=== PATIENT | male | born 1970 | race Caucasian/White ===

== ENCOUNTER 2017-01-02 08:57 | Emergency (ER) | payer OTHER ==
[2017-01-02 09:11] VITALS: RESP 18; O2SAT 97
--- NOTE | 2017-01-02 09:22 | EDPHY ---
H & P Stated Complaint: Infection R hand not responding to 48 hrs on antibx;here for poss IV antibx Source: Patient Exam Limitations: No limitations - Personal History Current Tetanus Diphtheria and Acellular Pertussis (TDAP): No - Medical/Surgical History Other PMH: HTN (untreated) - Social History Smoking Status: Former smoker Time Seen by Provider: 01/02/17 09:21 HPI/ROS: HPI: This is a 46-year-old male presents with Chief Complaint: Infection R hand not responding to 48 hrs on antibx;here for poss IV antibx Location: Right hand Quality: Infection Duration: 4 days Signs and Symptoms: No bleeding, no radiation, no numbness, no weakness, no tingling, no incontinence, no decreased range of motion, + swelling, + pain, + redness Timing: Worsening Severity: [id number] Context: Patient reports a he noticed what appeared to be a blister on the top of his right hand, that popped on its own. One day later he noted redness and swelling. His girlfriend is a surgeon and started him on Keflex 500 mg 4 times a day approximately 48 hours ago. Patient reports that the redness and swelling has not worsened since that time but it is not improving. He is right-hand dominant. No history of DM. Patient is requesting IV antibiotics. Tetanus is up-to-date per patient Modifying Factors: Keflex Comment: ROS: see HPI Constitutional: No fever, no chills, no weight loss Eyes: No blurred vision Respiratory: No shortness of breath, no cough Cardiovascular: No chest pain Gastrointestinal: No nausea, no vomiting no diarrhea Genitourinary: No dysuria Extremities: No myalgias Neurologic: No weakness, no numbness Skin: No rashes Hematologic: No bruising, no bleeding MEDICAL/SURGICAL/SOCIAL HISTORY: Medical history: Untreated hypertension. Does not take any regular medications. Surgical history: Denies Social history: Currently in a relationship CONSTITUTIONAL: Pleasant nontoxic appearance adult white male, awake and alert , no obvious distress HEENT: Atraumatic and normocephalic, PERRL, EOMI. Tympanic membranes clear. Oropharynx clear, no exudate and moist pink mucosa. Airway patent. No lymphadenopathy. No meningismus. Cardiovascular: Normal S1/S2, regular rate, regular rhythm, without murmur rub or gallop. PULMONARY/CHEST: Symmetrical and nontender. Clear to auscultation bilaterally. Good air movement. No accessory muscle usage. ABDOMEN: Soft, nondistended, nontender, no rebound, no guarding, no peritoneal signs, no masses or organomegaly. No CVAT. EXTREMITIES: 2/2 radial pulses, right hand top mid hand inferior to 5th digit shows mild erythema and swelling, MCP, DI P, PIP joints have full flexion back/ extension back/light touch sensation. No fluctuant area appreciated. strength 5 /5, no deformities, no clubbing, no cyanosis or edema. NEUROLOGICAL: no focal neuro deficits. GCS 15. SKIN: Warm and dry, no erythema. no rash. Good capillary refill. (Diamante Javier) Constitutional: Initial Vital Signs Temperature (C) 36.6 C 01/02/17 09:05 Heart Rate 80 01/02/17 09:05 Respiratory Rate 18 01/02/17 09:05 Blood Pressure 144/89 H 01/02/17 09:05 O2 Sat (%) 97 01/02/17 09:05 O2 Delivery Mode Room Air Allergies/Adverse Reactions: No Known Allergies Allergy (Verified 01/02/17 09:07) Home Medications: Medication Instructions Recorded Amphet Asp and D/Amphet [Adderall 10 mg PO 01/02/17 10 MG (*)] Cephalexin [Keflex (*)] 500 mg PO 01/02/17 Clindamycin HCl [Clindamycin] 300 mg PO TID #21 cap 01/02/17 Sulfamethox/Tmp 800/160 mg 1 tab PO BID #14 tab 01/02/17 [Bactrim Ds] Medical Decision Making ED Course/Re-evaluation: Labs and IV antibiotics ordered Tetanus up-to-date Patient politely refused hand x-ray. Area cleaned with mild soap and water and irrigated copiously, bacitracin and clean sterile dressing applied. Given IV Ancef and IV vancomycin. Patient is aware he is to return in 2 days for repeat wound check and follow- up. Labs reviewed and unremarkable at this time including ESR Surgical marker used to outline edges. No signs of neurovascular compromise/tenting of skin/compartment syndrome/ extremities and joints examined above and below area of concern and are neurovascularly intact. At this time no signs of tendon or bone infection. Patient was explained thoroughly the risk of tenosynovitis, abscess formation, bone infection. (Diamante Javier) The patient was evaluated and managed by the physician dermatology physician assistant. I have reviewed this chart and I agree with the findings and plan of care as documented , as indicated by my signature. I am the secondary supervising physician. ( Shannon Gregg) Differential Diagnosis: Differential diagnosis includes but is not limited to cellulitis, abscess, tenosynovitis, bone infection. (Diamante Javier) - Data Points Laboratory Results: Laboratory Results 01/02/17 09:40 01/02/17 09:40 Medications Given: Discontinued Medications Cefazolin Sodium/Dextrose (Ancef 1 Gm (Premix)) 50 mls @ 200 mls/hr IV EDNOW ONE PRN Reason: Protocol Stop: 01/02/17 09:43 Last Admin: 01/02/17 09:54 Dose: 50 mls Vancomycin/Sodium Chloride (Vancomycin 1 Gm (Premix)) 250 mls @ 250 mls/hr IV EDNOW ONE PRN Reason: Protocol Stop: 01/02/17 10:29 Last Admin: 01/02/17 10:07 Dose: 250 mls Departure - Departure Disposition: Home, Routine, Self-Care Clinical Impression: Blister of hand, right, infected Condition: Good Instructions: Cellulitis (ED) Additional Instructions: Please take Clindamycin and Bactrim as directed until complete. Please limit use of right hand as much as possible until infection is healed. Wash hand with mild soap and water daily, pat dry; apply topical antibiotic ointment and keep clean sterile dressing over area of concern until fully healed. Follow-up in 48 hours for wound recheck if symptoms are not improving or worsening. Referrals: [facility] [Other] - As per Instructions Royal Delaney MD [Medical Doctor] - As per Instructions Prescriptions: Clindamycin HCl [Clindamycin] 300 mg PO TID #21 cap Sulfamethox/Tmp 800/160 mg [Bactrim Ds] 1 tab PO BID #14 tab
[2017-01-02] MEDS ORDERED: VANCOMYCIN HCL/NORMAL SALINE 250 ML IV ONE (09:30)
[2017-01-02 09:48] LABS: % IMMATURE GRANULYOCYTES 0.4 % (0.0-1.1); ABSOLUTE IMMATURE GRANULOCYTES 0.03 10^3/uL (0.00-0.10); ADD DIFF? NO; ADD MORPH? NO; ADD SCAN? NO; ATYPICAL LYMPHOCYTE FLAG 0 (0-99); FRAGMENT RBC FLAG 0 (0-99); HEMATOCRIT 42.3 % (40.0-51.0); HEMOGLOBIN 14.9 g/dL (13.7-17.5); LEFT SHIFT FLG 0 (0-99); LIPEMIA HEMOLYSIS FLAG 90 (0-99); MEAN CELL HEMOGLOBIN 31.6 pg (27.9-34.1); MEAN CELL HEMOGLOBIN CONCENTR. 35.2 g/dL (32.4-36.7); MEAN CELL VOLUME 89.6 fL (81.5-99.8); MEAN PLATELET VOLUME 10.3 fL (8.7-11.7); PLATELET CLUMPS FLAG 30 (0-99); PLATELET COUNT 168 10^3/uL (150-400); RED BLOOD CELL COUNT 4.72 10^6/uL (4.40-6.38)
[2017-01-02 10:40] LABS: ANION GAP 11 mEq/L (8-16); CALCIUM 9.6 mg/dL (8.5-10.4); CARBON DIOXIDE 25 mEq/l (22-31); CHLORIDE 105 mEq/L (97-110); CREATININE 0.8 mg/dL (0.7-1.3); GLOMERULAR FILTRATION RATE > 60; GLUCOSE 111 mg/dL (70-100); POTASSIUM 4.6 mEq/L (3.5-5.2); SODIUM 141 mEq/L (134-144)
[2017-01-02 11:09] VITALS: BP 146/88; PULSE 73; TEMP 98.2
[2017-01-02 11:10] LABS: SEDIMENTATION RATE 5 MM/HR (0-15)
== END 2017-01-02 11:30 | disposition home or self-care (01) ==
DX: R23.8 Other skin changes (principal); L08.9 Local infection of the skin and subcutaneous tissue, unspecified; I10 Essential (primary) hypertension; Z87.891 Personal history of nicotine dependence
CPT/HCPCS: 96365; J0690; J3370